=== PATIENT | female | born 1995 | race Caucasian/White ===

== ENCOUNTER 2016-09-22 16:36 | Emergency (ER) | payer OTHER ==
[~2016-09-22 16:36] MED LIST: COLACE 100MG C100 MG PO; IBUPROFEN600 MG PO; NORCO 5-325 TA1 EACH PO
== END 2016-09-22 19:26 | disposition left against medical advice (07) ==
LOC: ER1 16:36
DX: Z53.21 Procedure and treatment not carried out due to patient leaving prior to being seen by health care provider (principal)
CPT/HCPCS: 93005

== ENCOUNTER 2021-05-15 17:12 | Emergency (ER) | payer OTHER ==
[~2021-05-15 17:12] MED LIST changes: +ECOTRIN81 MG PO; +LORTAB 5-325 M1 EACH PO; +PRENATAL TABLE1 EAC1 PO; +TRANDATE 100 M100 MG PO; +ZOFRAN4 MG PO
[2021-05-15 19:10] LABS: HEMOGLOBIN 14.5 gm/dl (12.3-15.3); RED BLOOD COUNT 4.95 M/UL (4.00-5.10); WHITE BLOOD COUNT 13.4 K/UL (4.5-11.0)
[2021-05-15 19:37] LABS: BUN/CREATININE RATIO 13 (0-10)
[2021-05-15] MEDS ORDERED: ZOFRAN 4 MG TAB4 MG PO (21:34)
[2021-05-15] MEDS ORDERED: HYDROCODON-ACE1 EAC4 PO (21:34)
[2021-05-15] MEDS ORDERED: FLOMAX 0.4 MG0.4 MG PO (21:41)
== END 2021-05-15 22:15 | disposition home or self-care (01) ==
LOC: ER1 17:12
PROVIDERS: Physician Assistant Medical
DX: N13.2 Hydronephrosis with renal and ureteral calculous obstruction (principal); Z95.5 Presence of coronary angioplasty implant and graft
CPT/HCPCS: 80053; 81001; 84703; 85025; 86140; 96374; 96375; 99284; J1170; J2405